=== PATIENT | male | born 1995 | race Caucasian/White ===

== ENCOUNTER 2016-05-29 21:17 | Emergency (ER) | payer SELFPAY ==
[~2016-05-29] VITALS: Ht 175.3 cm; Wt 54.5 kg
[~2016-05-29 21:17] MED LIST: NOCURR
[2016-05-30 00:03] VITALS: BP 133/74
[2016-05-30] MEDS ORDERED: AZITHROMYCIN 250 MG TABLET PO ONE (00:15)
[2016-05-30] MEDS ORDERED: ACETAMINOPHEN/CODEINE 300-30 MG TABLET PO ONE (00:15)
[2016-05-30] MEDS ORDERED: GuaiFENesin/D-METHORPHAN [SUGAR-FREE] 200-20MG/10 ML SYRUP UDCUP PO ONE (00:15)
== END 2016-05-30 00:24 | disposition home or self-care (01) ==
LOC: EMS 21:18
DX: J18.9 Pneumonia, unspecified organism (principal); R07.9 Chest pain, unspecified; F17.210 Nicotine dependence, cigarettes, uncomplicated
CPT/HCPCS: 99284; 99406

== ENCOUNTER 2017-01-04 10:12 | Emergency (ER) | payer MEDICAID ==
[~2017-01-04] VITALS: Ht 175.3 cm; Wt 54.5 kg
[2017-01-04 11:00] VITALS: BP 145/88
[2017-01-04] MEDS ORDERED: KETOROLAC TROMETHAMINE 30 MG/ML VIAL IVP ONE (11:00)
[2017-01-04] MEDS ORDERED: SODIUM CHLORIDE 0.9% 1,000 ML IV ONE (11:00)
[2017-01-04] MEDS ORDERED: ONDANSETRON HCL 4 MG/2 ML VIAL IVP ONE (11:15)
[2017-01-04 12:05] LABS: GLUCOSE, URINE (UA) NEGATIVE (NEGATIVE); KETONES,URINE >=80 mg/dL (NEGATIVE); LEUKOCYTE ESTERASE ,URINE TRACE (NEGATIVE); OCCULT BLOOD,URINE LARGE (NEGATIVE); PH,URINE 6.5 (5.0-8.0); PROTEIN,URINE POS 1+ (NEGATIVE)
[2017-01-04 12:39] LABS: APPEARANCE,URINE HAZY (CLEAR)
[2017-01-04 12:41] LABS: RBC,URINE 26-50 /HPF (0-2)
[2017-01-04 12:42] LABS: SQUAMOUS EPITHELIAL CELL,UR Few /LPF (None Seen)
== END 2017-01-04 14:33 | disposition home or self-care (01) ==
LOC: EMS 10:16
DX: N20.0 Calculus of kidney (principal); F17.210 Nicotine dependence, cigarettes, uncomplicated
CPT/HCPCS: 74176; 81001; 87086; 96361; 96374; 99285; J1885; J2405; J7030

== ENCOUNTER 2021-03-19 10:26 | Emergency (ER) | payer MEDICAID ==
[~2021-03-19] VITALS: Ht 175.3 cm; Wt 54.5 kg
[2021-03-19] MEDS ORDERED: IBUPROFEN 800 MG TABLET PO ONE (12:15)
[2021-03-19] MEDS ORDERED: PENI500T2 PO (12:18)
[2021-03-19 12:37] VITALS: BP 129/70
== END 2021-03-19 12:39 | disposition home or self-care (01) ==
LOC: EMS 10:29
DX: K05.10 Chronic gingivitis, plaque induced (principal); F17.210 Nicotine dependence, cigarettes, uncomplicated
CPT/HCPCS: 99283